=== PATIENT | male | born 1965 | race Caucasian/White ===

== ENCOUNTER 2022-07-26 22:03 | Emergency (ER) | payer OTHER ==
[~2022-07-26] VITALS: Ht 167.6 cm; Wt 63.5 kg
[2022-07-27] MEDS ORDERED: Percocet 5-3251 EACH PO (01:21)
== END 2022-07-27 01:58 | disposition home or self-care (01) ==
LOC: ER 22:03
DX: S02.411A LeFort I fracture, initial encounter for closed fracture (principal); S02.31XA Fracture of orbital floor, right side, initial encounter for closed fracture; Y04.2XXA Assault by strike against or bumped into by another person, initial encounter
CPT/HCPCS: 70450; 70486; 72125; A9270; J1170